=== PATIENT | female | born 2000 | race Hispanic/Latino ===

== ENCOUNTER 2022-07-11 19:30 | Emergency (ER) | payer SELFPAY ==
--- NOTE | 2022-07-11 20:59 | ER ---
Nurse's Notes [facility] Name: Juan Alberto nOeil Age: 22 yrs Sex: Female : 2000 Arrival Date: 07/11/2022 Time: 19:32 Bed 11 Private MD: Diagnosis: Acute suppurative otitis media;Unspecified otitis externa, right ear Presentation: 07/11 19:41 Chief complaint: Patient states: "I started having right ear pain 3 days ago. It became mb9 very painful and I can't sleep because of the pain. Its swollen and I can't hear anything out of my right ear. My fever started last night". Coronavirus screen: Vaccine status: Patient reports receiving the 2nd dose of the covid vaccine. Ebola Screen: No symptoms or risks identified at this time. Initial Sepsis Screen: Does the patient meet any 2 criteria? No. Patient's initial sepsis screen is negative. Does the patient have a suspected source of infection? No. Patient's initial sepsis screen is negative. Risk Assessment: Do you want to hurt yourself or someone else? Patient reports no desire to harm self or others. 19:41 Method Of Arrival: Ambulatory mb9 19:41 Acuity: YASMINE 4 mb9 Triage Assessment: 18:55 General: Appears in no apparent distress. uncomfortable, Behavior is calm, cooperative, kr3 appropriate for age. 21:23 Pain: Complains of pain in right ear. kr3 21:23 EENT: Reports pain. kr3 Historical: - Allergies: 19:44 No Known Allergies; mb9 - Home Meds: 19:44 None [Active]; mb9 - PMHx: 19:44 None; mb9 - PSHx: 19:44 None; mb9 - Immunization history:: Adult Immunizations up to date. - Social history:: Smoking status: Patient denies any tobacco usage or history of. Screenin:21 [facility] ED Fall Risk Assessment (Adult) History of falling in the last 3 months, kr3 including since admission No falls in past 3 months (0 pts) Confusion or Disorientation No (0 pts) Intoxicated or Sedated No (0 pts) Impaired Gait No (0 pts) Mobility Assist Device Used No (0 pt) Altered Elimination No (0 pt) Score/Fall Risk Level 0 - 2 = Low Risk Oriented to surroundings, Maintained a safe environment, Assessed \\T\\ reinforced patient's understanding of fall precautions, Hourly rounding (assess needs \\T\\ fall precautionary measures) done. Abuse screen: Denies threats or abuse. Nutritional screening: No deficits noted. Tuberculosis screening: No symptoms or risk factors identified. Assessment: 20:41 Reassessment: Patient appears in no apparent distress at this time. Patient and/or kr3 family updated on plan of care and expected duration. Pain level reassessed. Patient is alert/active/playful, equal unlabored respirations, skin warm/dry/pink. Vital Signs: 19:41 BP 149 / 68; Pulse 86; Resp 20; Temp 99.5; Pulse Ox 99% ; Weight 117.93 kg; Height 5 mb9 ft. 8 in. (172.72 cm); Pain 8/10; 21:21 BP 143 / 70; Pulse 88; Resp 18; Pulse Ox 100% on R/A; kr3 19:41 Body Mass Index 39.53 (117.93 kg, 172.72 cm) [facility] ED Course: 19:32 Patient arrived in ED. as 19:37 Kryst[facility] Valdez [facility]-C [facility]. snw 19:37 Rg Lawrence MD is Attending Physician. snw 19:44 Triage completed. mb9 19:44 Arm band placed on. mb9 19:44 Bed in low position. Call light in reach. Side rails up X 1. kr3 19:46 Ciara Amador, RN is Primary Nurse. kr3 21:22 No provider procedures requiring assistance completed. Patient did not have IV access kr3 during this emergency room visit. Administered Medications: 21:09 Drug: Cortisporin (neomycin-polymyxin) Drops 4 drops Route: Otic; Site: right ear; kr3 21:24 Follow up: Response: No adverse reaction kr3 21:09 Drug: predniSONE 40 mg Route: PO; kr3 21:24 Follow up: Response: No adverse reaction kr3 21:09 Drug: [place] (HYDROcodone-acetaminophen) 5 mg-325 mg 1 tabs Route: PO; kr3 21:24 Follow up: Response: No adverse reaction; RASS: Alert and Calm (0) kr3 21:09 Drug: Augmentin (Amoxicillin-Clavulanate) 875 mg Route: PO; kr3 21:23 Follow up: Response: No adverse reaction kr3 Medication: 21:23 VIS not applicable for this client. kr3 Outcome: 20:58 Discharge ordered by . toyin 21:22 Discharged to home ambulatory. kr3 21:22 Condition: stable 21:22 Discharge instructions given to patient, Instructed on discharge instructions, follow up and referral plans. medication usage, Demonstrated understanding of instructions, follow-up care, medications, Prescriptions given X 3. 21:24 Patient left the ED. kr3 Signatures: Krysta Valdez, WINDOWS 7 DEPLOYMENT LEAD-C WINDOWS 7 DEPLOYMENT LEAD-Layne Jones Kelley RN RN kr3 Aissatou Flores RN RN mb9
--- NOTE | 2022-07-11 20:59 | EDPHYS ---
Physician Documentation [facility] Name: Juan Alberto Oneil Age: 22 yrs Sex: Female : 2000 Arrival Date: 07/11/2022 Time: 19:32 Bed 11 Private MD: ED Physician Rg Lawrence HPI: 07/11 21:04 This 22 yrs old Female presents to ER via Ambulatory with complaints of Ear snw Pain, Fever. 21:04 The patient presents with a fullness, hearing loss, pain, swelling, tenderness. The snw complaints affect the right ear. Onset: The symptoms/episode began/occurred suddenly, 3 day(s) ago, and became worse and became persistent. Associated signs and symptoms: The patient has no apparent associated signs or symptoms. Severity of symptoms: At their worst the symptoms were moderate. The patient has not experienced similar symptoms in the past. The patient has not recently seen a physician. using ringing ear otc drops. Historical: - Allergies: 19:44 No Known Allergies; mb9 - Home Meds: 19:44 None [Active]; mb9 - PMHx: 19:44 None; mb9 - PSHx: 19:44 None; mb9 - Immunization history:: Adult Immunizations up to date. - Social history:: Smoking status: Patient denies any tobacco usage or history of. ROS: 21:03 Constitutional: Negative for fever, chills, and weight loss, Eyes: Negative for injury, snw pain, redness, and discharge, Neck: Negative for injury, pain, and swelling, Cardiovascular: Negative for chest pain, palpitations, and edema, Respiratory: Negative for shortness of breath, cough, wheezing, and pleuritic chest pain, Abdomen/GI: Negative for abdominal pain, nausea, vomiting, diarrhea, and constipation, Back: Negative for injury and pain, : Negative for injury, bleeding, discharge, and swelling, MS/Extremity: Negative for injury and deformity, Skin: Negative for injury, rash, and discoloration, Neuro: Negative for headache, weakness, numbness, tingling, and seizure, Psych: Negative for depression, anxiety, suicide ideation, homicidal ideation, and hallucinations. 21:03 ENT: Positive for ear pain, of the right ear. Exam: 21:01 Constitutional: This is a well developed, well nourished patient who is awake, alert, snw and in no acute distress. Head/Face: Normocephalic, atraumatic. Eyes: Pupils equal round and reactive to light, extra-ocular motions intact. Lids and lashes normal. Conjunctiva and sclera are non-icteric and not injected. Cornea within normal limits. Periorbital areas with no swelling, redness, or edema. Neck: Trachea midline, no thyromegaly or masses palpated, and no cervical lymphadenopathy. Supple, full range of motion without nuchal rigidity, or vertebral point tenderness. No Meningismus. Chest/axilla: Normal chest wall appearance and motion. Nontender with no deformity. No lesions are appreciated. Cardiovascular: Regular rate and rhythm with a normal S1 and S2. No gallops, murmurs, or rubs. Normal PMI, no JVD. No pulse deficits. Respiratory: Lungs have equal breath sounds bilaterally, clear to auscultation and percussion. No rales, rhonchi or wheezes noted. No increased work of breathing, no retractions or nasal flaring. Abdomen/GI: Soft, non-tender, with normal bowel sounds. No distension or tympany. No guarding or rebound. No evidence of tenderness throughout. Back: No spinal tenderness. No costovertebral tenderness. Full range of motion. Skin: Warm, dry with normal turgor. Normal color with no rashes, no lesions, and no evidence of cellulitis. MS/ Extremity: Pulses equal, no cyanosis. Neurovascular intact. Full, normal range of motion. Neuro: Awake and alert, GCS 15, oriented to person, place, time, and situation. Cranial nerves II-XII grossly intact. Motor strength 5/5 in all extremities. Sensory grossly intact. Cerebellar exam normal. Normal gait. Psych: Awake, alert, with orientation to person, place and time. Behavior, mood, and affect are within normal limits. 21:01 ENT: External ear(s): swelling, that is minimal, Ear canal(s): purulent discharge, that is moderate, in the right canal, swelling, Nose: is normal, External nose: no obvious acute abnormality, Mouth: is normal, Posterior pharynx: is normal, Voice: is normal. Vital Signs: 19:41 BP 149 / 68; Pulse 86; Resp 20; Temp 99.5; Pulse Ox 99% ; Weight 117.93 kg; Height 5 mb9 ft. 8 in. (172.72 cm); Pain 8/10; 21:21 BP 143 / 70; Pulse 88; Resp 18; Pulse Ox 100% on R/A; kr3 19:41 Body Mass Index 39.53 (117.93 kg, 172.72 cm) mb9 MDM: 19:37 Patient medically screened. snw 20:48 Differential diagnosis: otitis media, otitis externa, ruptured TM, acute otalgia, snw cerumen impaction, barotrauma . Data reviewed: vital signs, nurses notes. Test considered but Not performed: Other Details CT mastoid bones, not done as pt denies pain to palpation of bone. Counseling: I had a detailed discussion with the patient and/or guardian regarding: the historical points, exam findings, and any diagnostic results supporting the discharge/admit diagnosis, the presence of at least one elevated blood pressure reading (>120/80) during this emergency department visit, the need for outpatient follow up, for definitive care, to return to the emergency department if symptoms worsen or persist or if there are any questions or concerns that arise at home. Special discussion: I have referred the patient to see his PCP for further evaluation of high blood pressure. Based on the history and exam findings, there is no indication for further emergent testing or inpatient evaluation. I discussed with the patient/guardian the need to see the ENT specialist for further evaluation of the symptoms. I discussed with the patient/guardian the need to see the primary care provider for further evaluation of the symptoms. 23:10 ED course: PHYSICIAN SPECIALIST aware negative. snw Administered Medications: 21:09 Drug: Cortisporin (neomycin-polymyxin) Drops 4 drops Route: Otic; Site: right ear; kr3 21:24 Follow up: Response: No adverse reaction kr3 21:09 Drug: predniSONE 40 mg Route: PO; kr3 21:24 Follow up: Response: No adverse reaction kr3 21:09 Drug: [place] (HYDROcodone-acetaminophen) 5 mg-325 mg 1 tabs Route: PO; kr3 21:24 Follow up: Response: No adverse reaction; RASS: Alert and Calm (0) kr3 21:09 Drug: Augmentin (Amoxicillin-Clavulanate) 875 mg Route: PO; kr3 21:23 Follow up: Response: No adverse reaction kr3 Disposition: 07/12 19:08 Co-signature as Attending Physician, gR Lawrence MD I reviewed the patient's care rn provided by the Advanced Practice Provider and agree with the diagnosis and treatment plan. Disposition Summary: 07/11/22 20:58 Discharge Ordered Location: Home snw Condition: Stable snw Diagnosis - Acute suppurative otitis media snw - Unspecified otitis externa, right ear snw Followup: snw - With: Emergency Department - When: As needed - Reason: Worsening of condition Followup: snw - With: Private Physician - When: 2 - 3 days - Reason: Recheck today's complaints, Continuance of care, Re-evaluation by your physician Discharge Instructions: - Discharge Summary Sheet snw - Otitis Media, Adult snw - Otitis Externa snw - Hypertension, Adult snw - DASH Eating Plan snw - Form - Blood Pressure Record Sheet snw - How to Take Your Blood Pressure snw Forms: - Medication Reconciliation Form snw - Thank You Letter snw - Work release form snw - Antibiotic Education snw - Prescription Opioid Use snw Prescriptions: - Augmentin 875-125 mg Oral Tablet - take 1 tablet by ORAL route every 12 hours for 10 days; 20 tablet; Refills: 0, snw Product Selection Permitted - Prednisone 20 mg Oral Tablet - take 2 tablets by ORAL route once daily for 5 days; 10 tablet; Refills: 0, snw Product Selection Permitted - Tylenol-Codeine #3 300 mg-30 mg Oral - take 1 tablet by ORAL route 3 times per day; 12 tablet; Refills: 0, Product snw Selection Permitted Signatures: Krysta Valdez, RETAIL SERVICE TECHNICIAN-C RETAIL SERVICE TECHNICIAN-Csnw Rg Lawrence MD MD rn Reid, Kelley, RN RN kr3 Aissatou Flores RN RN mb9
[2022-07-11] MEDS ORDERED: NEOMY/POLY/HC 1% OTIC DROPS ONE (21:07)
[2022-07-11] MEDS ORDERED: predniSONE 20 MG TAB ONE (21:08)
[2022-07-11] MEDS ORDERED: HYDROCODONE/APAP 5/325 MG TAB ONE (21:08)
[2022-07-11] MEDS ORDERED: AMOX/K CLAV 875 MG TAB ONE (21:08)
[2022-07-11 22:16] VITALS: TEMP 99.5
[2022-07-11 22:17] VITALS: BP 143/70; O2SAT 100
== END 2022-07-11 21:24 | disposition home or self-care (01) ==
LOC: ER 19:30
DX: H60.91 Unspecified otitis externa, right ear (principal); H66.009 Acute suppurative otitis media without spontaneous rupture of ear drum, unspecified ear
CPT/HCPCS: 99283; J7512